=== PATIENT | male | born 2000 | race African-American/Black ===

== ENCOUNTER 2022-05-03 02:20 | Emergency (ER) | payer OTHER, SELFPAY ==
[2022-05-03 02:30] VITALS: BP 135/65; PULSE 80; RESP 16; TEMP 36.4; O2SAT 100
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
[2022-05-03] MEDS: Cyclobenzaprine 10 MG TAB PO (03:04)
[2022-05-03] MEDS: Lidocaine 5% Patch 1 PATCH TP (03:04)
[2022-05-03] MEDS: Ketorolac 15 MG/ML VIAL IM (03:04)
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
[2022-05-03 04:54] VITALS: BP 119/75; PULSE 66; RESP 18; O2SAT 99
== END 2022-05-03 04:53 | disposition home or self-care (01) ==
LOC: ER 05:04
PROVIDERS: Emergency Provider Emergency Medicine
DX: S20.221A Contusion of right back wall of thorax, initial encounter (principal); V43.52XA Car driver injured in collision with other type car in traffic accident, initial encounter; R07.89 Other chest pain; M54.89 Other dorsalgia
CPT/HCPCS: 71250; 96372; 99284; J1885

== ENCOUNTER 2023-10-28 16:53 | Emergency (ER) | payer MEDICAID, SELFPAY ==
[2023-10-28 17:07] VITALS: BP 116/68; PULSE 81; RESP 16; TEMP 36.9; O2SAT 100
--- NOTE | 2023-10-28 18:48 | ED.GENADUL_ITS ---
Discharge Plan Disposition Patient Disposition: Home Condition: Stable Discharge Details Clinical Impression: Viral syndrome Primary Care Provider: None,None ED Provider: Da Sierra Home Meds and New Rx's Prescriptions: Continued fluticasone propionate 50 mcg/actuation spray,suspension 1 spray intranasal BID Rx Instructions: administer into each nostril for 5-7 days then reduce to 1 spray daily until resolved. Discharge Instructions Instructions: Cough, runny nose, and the common cold, Ondansetron Additional Instructions: You were seen in the emergency department for your body aches with onset cough, is likely a viral syndrome, your labs are all reassuring for no evidence of severe systemic infection. You responded well to symptomatic treatments like Tylenol, NSAIDs, simple nausea medicines and IV fluids. I am sending you home with to go pack of dissolvable nausea tablets to place under your tongue about 20 to 30 minutes before mealtimes. Please try to stay well-hydrated. Please return to the emergency department for any severe worsening of your condition including shortness of breath, chest pain, profound lethargy, intractable nausea and vomiting. Discharge Data Discharge Date/Time-TO BE ENTERED AT DEPARTURE: 10/28/23 20:58 HPI General Date/Time Provider Initiated Documentation: 10/28/23 17:11 . HPI Narrative: 23 year-old male presents to ED today by POV/ambulating with a chief complaint of nausea/vomiting, headache, chills, body aches, cough- chronic smoker's cough with onset since 0300 this morning. Quality described as generalized malaise, no radiation to shortness of breath, chest pain, focal abdominal pain, black/bloody diarrhea, dizziness, high fever. Severity is described as moderate. Palliating factors include nothing specific. Provoking factors include nothing specific. Patient not anticoagulated. Related Data Home Medications ?Medication ?Instructions ?Recorded ?Confirmed fluticasone propionate 50 1 spray intranasal BID 10/08/23 mcg/actuation nasal spray,suspension Allergies Allergy/AdvReac Type Severity Reaction Status Date / Time No Known Allergies Allergy Unverified 12/17/12 08:33 General Stated Complaint: Nausea/Vomit/Diar HARPREET: 3 Review of Systems All systems reviewed & are unremarkable except as noted in HPI and below Exam Narrative Exam Narrative: GENERAL APPEARANCE: Well-nourished, non-toxic, awake and alert, atraumatic, no acute distress. SKIN: Warm, pink, dry, intact, without rashes/lesions/ulcerations. HEAD: Normocephalic, atraumatic, normal hair distribution for gender/age. EYES: Pupils PERRLA, EOMs intact without nystagmus, normal conjunctiva, no exudates on lids/lashes. ENT: Nares patent, no circumoral cyanosis, no facial swelling NECK: Supple, trachea midline, painless cervical ROM. LUNGS/CHEST: Lungs CTA bilaterally, non-labored respirations, normal A/P diameter, symmetrical expansion, no chest wall deformity HEART (CV/PV): Regular rate and rhythm without murmur, no peripheral edema, no JVD. ABDOMEN: Soft, non-distended, no guarding. MSK: Normal ROM, no swelling/deformity to bilateral UEs or LEs, moving all extremities without weakness, no cyanosis, spine midline without tenderness, normal curvature. NEURO: Mental Status AAOx4 - alert to person, place, time, events No facial droop, no forehead involvement. Motor: No focal weakness - strength 5/5 in bilateral UEs and LEs, proximal and distal, symmetric. Sensory: sensation intact to light touch globally. Gait normal: patient ambulated without ataxia into ED room. PSYCH: euthymic, cooperative, pleasant, appropriate speech Course Vital Signs Vital signs: Vital Signs Temperature 36.9 C 10/28/23 17:07 Pulse 81 10/28/23 17:07 Respiratory Rate 16 10/28/23 17:07 Blood Pressure 116/68 10/28/23 17:07 Pulse Oximetry 100 10/28/23 17:07 Temperature 36.9 C 10/28/23 17:07 Temperature Source Oral 10/28/23 17:07 Pulse 81 10/28/23 17:07 Respiratory Rate 16 10/28/23 17:07 Blood Pressure 116/68 10/28/23 17:07 Blood Pressure Position Sitting 10/28/23 17:07 Pulse Oximetry 100 10/28/23 17:07 Oxygen Delivery Method Room Air 10/28/23 17:07 Oxygen Flow Rate 0 10/28/23 17:07 Pain Level 7 10/28/23 17:07 Medical Decision Making This dictation utilizes [id number] dictation software and may contain unedited grammatical errors. 23 year-old male presents to ED today by POV/ambulating with a chief complaint of nausea/vomiting, headache, chills, body aches, cough- chronic smoker's cough with onset since 0300 this morning. Quality described as generalized malaise, no radiation to shortness of breath, chest pain, focal abdominal pain, black/bloody diarrhea, dizziness, high fever. Severity is described as moderate. Palliating factors include nothing specific. Provoking factors include nothing specific. Patients' medical history: asthma. Family and social history: noncontributory. Pertinent exam findings / vital signs include lungs CTA, no wheezing, benign cardiac exam, benign abdomen, nontoxic and afebrile. Differential / pathologies of concern include viral syndrome, generalized malaise, tickborne illness, gastroenteritis. Diagnostic studies of: -CBC, CMP, Lactate, Lipase, magnesium, Procalcitonin, Covid/Flu/RSV PCR, Tick Panel, UA. -CBC benign -Lactate and procalcitonin negative-do not suspect sepsis -COVID/flu/RSV PCR negative -UA without infection -Lipase negative -CMP completely benign -Magnesium within normal limits -Tick panel pending Interventions of: -Zofran to go, fluids Tylenol and migraine medications with complete relief of symptoms. ED Course/Assessment/Plan: Counseled the patient on likely viral syndrome, counseled on therapeutic dosing of Tylenol and ibuprofen at home stay well-hydrated, using to go Zofran before meals for the next day, likely he would improve over the next 7 days, strict return criteria for increasing respiratory distress, severe neck stiffness with fever, intractable nausea or vomiting. Findings not consistent with intractable nausea/vomiting, respiratory distress. Disposition of viral syndrome. Patient verbalized understanding of the plan and return to ED criteria and engaged in shared decision making. Medical Records Medical records reviewed: Yes I reviewed the patient's medical records. Lab Data Lab results reviewed: Yes I reviewed the patient's lab results. Labs: Laboratory Tests Range/Units 10/28/23 10/28/23 19:10 19:13 WBC (4.4-10.8) 10^3/uL 10.05 RBC (4.36-5.78) 10^6/uL 5.52 Hgb (13.5-17.5) g/dL 15.5 Hct (40.0-50.0) % 46.5 MCV (80-95) fL 84 MCH (27.0-33.0) pg 28.1 MCHC (32.0-36.0) % 33.3 RDW (11.8-14.1) % 12.0 Plt Count (130-400) 10^3/uL 416 H MPV (8.0-11.0) fL 9.1 Immature Gran % % 0.4 Neutrophils % % 75.1 Lymphocytes % % 13.6 Monocytes % % 10.1 Eosinophils % % 0.4 Basophils % % 0.4 Nucleated RBC % (0.0-0.3) % 0.0 Absolute Neutrophils (1.2-6.7) 10^3/uL 7.54 H Absolute Lymphocytes (1.2-3.4) 10^3/uL 1.37 Absolute Monocytes (0.1-0.8) 10^3/uL 1.02 H Absolute Eosinophils (0.0-0.7) 10^3/uL 0.04 Absolute Basophils (0.0-0.2) 10^3/uL 0.04 VBG Lactate (0.6-1.4) mmol/L 0.9 Sodium (136-145) mmol/L 142 Potassium (3.5-5.1) mmol/L 3.7 Chloride (98-107) mmol/L 103 Carbon Dioxide (21.0-32.0) mmol/L 30.0 Anion Gap (3-11) mmol/L 9.0 BUN (7-18) mg/dL 8 Creatinine (0.70-1.30) mg/dL 1.0 Est GFR (CKD-EPI 2020) (mL/min/1.73m2) 108.46 Glucose (74-106) mg/dL 103 Calcium (8.5-10.1) mg/dL 9.2 Magnesium (1.8-2.4) mg/dL 2.0 Total Bilirubin (0.2-1.0) mg/dL 0.91 AST (15-37) U/L 20 ALT (16-63) U/L 20 Alkaline Phosphatase (46-116) U/L 67 Total Protein (6.4-8.2) g/dL 8.8 H Albumin (3.4-5.0) g/dL 4.0 Lipase (16-77) U/L 39 Procalcitonin ng/mL 0.1 Urine Color (Yellow) Yellow Urine Clarity (Clear) Clear Urine pH (5-8) 8.5 H Ur Specific [place] (1.005-1.025) 1.020 Urine Protein (Neg-Trace) mg/dL Negative Urine Ketones (Negative) mg/dL 15 H Urine Blood (Negative) Negative Urine Nitrite (Negative) Negative Urine Bilirubin (Negative) Small H Urine Urobilinogen (Up to 0.2) mg/dL 4.0 H Ur Leukocyte Esterase (Negative) Negative Urine Glucose (Negative) mg/dL Negative COVID-19 Source Nasopharynx SARS-CoV-2 (PCR) (Negative) Negative Influenza Type A (PCR) (Negative) Negative Influenza Type B (PCR) (Negative) Negative RSV (PCR) (Negative) Negative Quality:SDOH Health Related Social Needs: No Data to Display PFSH All Active Problems (Updated 10/28/23 @ 20:27 by JULIO Camarillo) Viral syndrome (Acute) Medical History (Updated 10/28/23 @ 20:27 by JULIO Camarillo) Dysfunction of left eustachian tube Nausea and vomiting Disease of tongue, unspecified hyperbilirubinemia Family History Other Hypertensive disorder, systemic arterial MGM, MGF Diabetes mat and pat sides Personal history of malignant neoplasm MGM-breast pat side with breast cancer Hyperlipidemia MGM, MGF Mental disorder depresssion/suicide paternal side Mother Personal history of malignant neoplasm cervical cancer Mental disorder bipolar Asthma Father Attention deficit hyperactivity disorder Social History Smoking/Tobacco Use Status: Current every day Tobacco Type: e-cigarettes Smoking risk assessment performed?: Yes Alcohol Intake: current Alcohol Intake frequency: a few times a week Do you feel safe at home: Yes Do you feel safe in your relationship?: Yes
[2023-10-28] MEDS: Lactated Ringers 1,000 ML 1000 ML IV (19:14)
[2023-10-28 19:21] LABS: Lactate 0.9 mmol/L (0.6-1.4)
[2023-10-28] MEDS: ACETAMINOPHEN 1,000 MG/100 ML BTL 400 MG IVPB (19:22)
[2023-10-28] MEDS: Dexamethasone 4 MG/ML VIAL IVP (19:24)
[2023-10-28] MEDS: Ketorolac 15 MG/ML VIAL IVP (19:26)
[2023-10-28 19:28] LABS: Abs Immature Grans 0.04 10^3/uL (0.0-0.06); Absolute Basophil Count 0.04 10^3/uL (0.0-0.2); Absolute Eosinophil Count 0.04 10^3/uL (0.0-0.7); Absolute Lymphocyte Count 1.37 10^3/uL (1.2-3.4); Absolute Monocyte Count 1.02 10^3/uL (0.1-0.8); Absolute Neutrophil Count 7.54 10^3/uL (1.2-6.7); Basophils % 0.4 %; Eosinophils % 0.4 %; HCT 46.5 % (40.0-50.0); HGB 15.5 g/dL (13.5-17.5); Immature Grans % 0.4 %; Lymphocytes % 13.6 %; MCH 28.1 pg (27.0-33.0); MCHC 33.3 % (32.0-36.0); MCV 84 fL (80-95); MPV 9.1 fL (8.0-11.0); Monocytes % 10.1 %; Neutrophils % 75.1 %; Platelet Count 416 10^3/uL (130-400); RBC 5.52 10^6/uL (4.36-5.78); RDW-SD 36.5 fL; WBC 10.05 10^3/uL (4.4-10.8)
[2023-10-28] MEDS: Metoclopramide 10 MG/2 ML VIAL IVP (19:29)
[2023-10-28] MEDS: diphenhydrAMINE 50 MG/ML VIAL 25 MG IVP (19:29)
[2023-10-28 19:38] LABS: Bilirubin Small (Negative); Blood Negative (Negative); Clarity Clear (Clear); Glucose Negative (Negative); Ketones 15 mg/dL (Negative); Leukocyte Esterase Negative (Negative); Nitrite Negative (Negative); pH 8.5 (5-8)
[2023-10-28 19:42] LABS: ALT 20 U/L (16-63); AST 20 U/L (15-37); Alkaline Phosphatase 67 U/L (46-116); BUN 8 mg/dL (7-18); Bilirubin, Total 0.91 mg/dL (0.2-1.0); Calcium 9.2 mg/dL (8.5-10.1); Chloride 103 mmol/L (98-107); Estimated GFR 108.46 (mL/min/1.73m2); Glucose 103 mg/dL (74-106); Lipase 39 U/L (16-77); Potassium 3.7 mmol/L (3.5-5.1); Sodium 142 mmol/L (136-145); Total Protein 8.8 g/dL (6.4-8.2)
[2023-10-28 20:01] LABS: Procalcitonin 0.1 ng/mL
[2023-10-28 20:10] LABS: COVID-19 PCR Negative (Negative); Influenza A PCR Negative (Negative); Influenza B PCR Negative (Negative); RSV PCR Negative (Negative); Source Nasopharynx
[2023-10-28 20:40] VITALS: BP 111/57; PULSE 69; TEMP 36.1; O2SAT 97
[2023-10-30 10:07] LABS: Lyme Ab w Rflx to Lyme Confirm Negative (Negative)
[2023-11-01 01:32] LABS: Anaplasma phagocytophilum Negative (Negative); B. miyamotoi PCR Negative (Negative); Babesia divergens/MO-1 Negative (Negative); Babesia duncani Negative (Negative); Babesia microti Negative (Negative); Ehrlichia chaffeensis Negative (Negative); Ehrlichia ewingii/canis Negative (Negative); Ehrlichia muris eauclairensis Negative (Negative)
== END 2023-10-28 20:58 | disposition home or self-care (01) ==
PROVIDERS: Emergency Provider Physician Assistant
DX: B34.9 Viral infection, unspecified (principal); F17.290 Nicotine dependence, other tobacco product, uncomplicated
CPT/HCPCS: 80053; 83690; 84145; 87637; 87798; 81003; 83605; 83735; 85025; 86618; J0131; J1100; J1200; J1885; J2765

== ENCOUNTER 2023-11-07 10:23 | Emergency (ER) | payer MEDICAID, SELFPAY ==
[2023-11-07 10:26] VITALS: BP 115/61; PULSE 94; RESP 18; TEMP 37; O2SAT 100
--- NOTE | 2023-11-07 11:07 | W.ED.GENAD ---
Discharge Plan Disposition Patient Disposition: Home Condition: Good Discharge Details Clinical Impression: Conjunctivitis, Acute eye pain Primary Care Provider: None,None ED Provider: Meg Haley Home Meds and New Rx's Prescriptions: Continued fluticasone propionate 50 mcg/actuation spray,suspension 1 spray intranasal BID Rx Instructions: administer into each nostril for 5-7 days then reduce to 1 spray daily until resolved. Discharge Instructions Additional Instructions: As we discussed, I am concerned that you have some irritation and uptake on your exam today. This may be associated with the eyedrops or with exposure at work. I am not putting any ointment in your eyes should be family eye care will see you right now. Please go directly from here to their office and they will be able to evaluate your eye and come up with a plan. If you develop any new or worsening symptoms, please seek care urgently once again. Otherwise, please follow recommendations of [facility]. Stand Alone Forms: Work Release Referrals: [facility] [Outside] Homa Funez RN [Emergency Nurse] - Discharge Data Discharge Date/Time-TO BE ENTERED AT DEPARTURE: 11/07/23 12:55 HPI General Date/Time Provider Initiated Documentation: 11/07/23 10:24. Limitations to Documentation: no limitations. Information obtained by: patient, family and RN notes reviewed. History of Present Illness 23 year old M presents to the emergency department with the chief complaint of bilateral eye pain, photophobia, injection, described as moderate, Quality is described as burning (no pain with eyes closed, only with blinking and light exposure), and is localized to the eyes. Patient reports no radiation. Patient started experiencing this day(s) and it has been constant. No relieving factors improve symptom(s), No exacerbating factors reported . Patient notes no other symptoms.. Patient did receive the following treatments prior to arrival, other (Visine eye drops) Related Data Home Medications ?Medication ?Instructions ?Recorded ?Confirmed fluticasone propionate 50 1 spray intranasal BID 10/08/23 11/07/23 mcg/actuation nasal spray,suspension Allergies Allergy/AdvReac Type Severity Reaction Status Date / Time No Known Allergies Allergy Unverified 11/07/23 10:29 General Stated Complaint: EyeProblem HARPREET: 4 Review of Systems Constitutional Constitutional: Reports as per HPI, Denies chills, Denies fever(s) and Denies headache(s) Eyes Eyes: Reports as per HPI ENT Ears, Nose, Mouth, and Throat: Denies headache(s) Respiratory Respiratory: Denies cough Integumentary/Breasts Skin/Breast: Reports as per HPI, Denies rash, Denies skin pain and Denies skin swelling Neurologic Neurologic: Denies headache(s) Exam Const General: cooperative, healthy appearing, no acute distress, well developed and well groomed Nutritional Appearance: average body habitus and well nourished Orientation: alert, awake and oriented x3 HENMT Head: normal to inspection, normocephalic and atraumatic Ears: external ears normal General nose exam: external nose normal and nares normal Face and sinus: normal facial exam and face symmetric Mouth: oral mucosae normal, lip normal and moist mucous membranes Eyes Alignment and Position: alignment normal and position normal Periorbital: periorbital findings normal Eyelids: eyelids normal Conjunctivae: conjunctival abnormality bilaterally conjunctival injection Sclera: scleral abnormality bilaterally Cornea: corneas abnormal bilaterally fluorescein used and diffuse punctate uptake (consistent with keratitis, no dendritic lesions) and fluorescein used Pupils: PERRL EOM: EOM intact bilaterally Resp Effort & Inspection: normal respiratory effort, able to speak in complete sentences and no respiratory distress Skin General skin exam: no rashes or lesions noted Neuro General: patient alert and patient awake Cognition: normal cognition Speech: speech normal Gait: normal gait Course Vital Signs Vital signs: Vital Signs Temperature 37.0 C 11/07/23 10:26 Pulse 94 H 11/07/23 10:26 Respiratory Rate 18 11/07/23 10:26 Blood Pressure 115/61 11/07/23 10:26 Pulse Oximetry 100 11/07/23 10:26 Temperature 37.0 C 11/07/23 10:26 Temperature Source Temporal Artery Scan 11/07/23 10:26 Pulse 94 H 11/07/23 10:26 Respiratory Rate 18 11/07/23 10:26 Respiratory Effort Normal, Non-Labored 11/07/23 10:28 Blood Pressure 115/61 11/07/23 10:26 Blood Pressure Position Sitting 11/07/23 10:26 Pulse Oximetry 100 11/07/23 10:26 Oxygen Delivery Method Room Air 11/07/23 10:26 Oxygen Flow Rate 0 11/07/23 10:26 Medical Decision Making Patient is a pleasant 23-year-old male, otherwise healthy, accompanied by his significant other, presenting with chief complaint of bilateral eye pain. He reports he was seen in urgent care about 1 week ago and was diagnosed with a viral conjunctivitis. He reports that he was ill with a cold the week prior, though symptoms of all resolved. However, the eye issues has continued to progress. He reports that now he has significant photophobia and feels that his vision is blurry. Is wearing sunglasses and has difficulty opening his eyes secondary to what he perceives as the photophobia. Patient does wear corrective lenses but does not wear contacts. Receives care at [facility]. He has not been seen by them as of yet. He denies any significant headaches or eye pain when the eyes are closed. No nausea or vomiting. Denies any fevers or chills. On exam, patient appears nontoxic. He is preferring to hold his eyes in the closed position. With assistance, able to open the eyes and appreciated injected sclera bilateral eyes. Pupils appear to have normal response. He does have significant discomfort with this. I not appreciate any significant abnormality at this time. He denies any trauma or foreign body sensation. However, patient does work at [employer] and I am concerned about potential exposures and question if he may have some corneal abrasions that may be contributing to the worsening photophobia and eye issues. Will apply tetracaine and continue with fluorescein exam. I do not see any surrounding erythema. No discharge. No pain with extraocular movements when the eyes are closed and photophobia is not contributing to his discomfort. For this reason, I do not see indication of orbital cellulitis. Extraocular movements are intact. No pain with extraocular movements when eyes are closed. This is more difficult when eyes are open given the photophobia. Patient did improve after application of tetracaine. Concerned for small punctate lesions on slit lamp exam. Concerned that this indicates chemical irritation, keratitis. Could be viral keratitis but no dendritic lesions to indicate herpetic lesions. Called [facility] where patient typically recieves care. They are able to see patient immediatly. Will therefore hold off on any further intraocular medications. Discussed with patient who is in agreement. Return precautions discussed. Quality:SDOH Health Related Social Needs: No Data to Display [facility] All Active Problems (Updated 11/07/23 @ 12:32 by JULIO Marshall) Acute eye pain (Acute) Conjunctivitis (Acute) Viral syndrome (Acute) Medical History (Updated 11/07/23 @ 12:32 by JULIO Marshall) Dysfunction of left eustachian tube Nausea and vomiting Disease of tongue, unspecified hyperbilirubinemia Family History Other Hypertensive disorder, systemic arterial MGM, MGF Diabetes mat and pat sides Personal history of malignant neoplasm MGM-breast pat side with breast cancer Hyperlipidemia MGM, MGF Mental disorder depresssion/suicide paternal side Mother Personal history of malignant neoplasm cervical cancer Mental disorder bipolar Asthma Father Attention deficit hyperactivity disorder Social History Smoking/Tobacco Use Status: Current every day Tobacco Type: e-cigarettes Smoking risk assessment performed?: Yes Alcohol Intake: current Alcohol Intake frequency: a few times a week Drug use: Daily Substance use type: marijuana Do you feel safe at home: Yes Do you feel safe in your relationship?: Yes
[2023-11-07] MEDS: Fluorescein STRIPS 100/BOX 1 MG OP (11:13)
[2023-11-07] MEDS: Tetracaine 0.5% 4 ML BTL OP (11:13)
[2023-11-07 11:14] VITALS: BP 116/74; PULSE 88; RESP 16; O2SAT 100
[2023-11-07 12:52] VITALS: BP 120/74; PULSE 88; RESP 18; O2SAT 99
[2023-11-07] MEDS: Erythromycin Ophth Oint 3.5 GM TUBE OU (12:53)
== END 2023-11-07 12:55 | disposition home or self-care (01) ==
PROVIDERS: Emergency Provider Physician Assistant
DX: H10.9 Unspecified conjunctivitis (principal); H57.13 Ocular pain, bilateral; F17.290 Nicotine dependence, other tobacco product, uncomplicated
CPT/HCPCS: 99283

== ENCOUNTER 2024-02-06 17:17 | Outpatient (REF) | payer OTHER, MEDICAID, SELFPAY ==
--- NOTE | 2024-02-06 10:15 | TONG_PTH ---
PATIENT: Glynn Keith LOC: [place] U#:[id number] AGE/SX: 23/M ROOM: RE02/06/[address]: Eduardo Barajas MD : [id number] BED: DIS: 02/06/2024 SPEC #: [id number] RECD: 02/06/24 17:31 STATUS: SHIREEN REQ #: [id number] LUCÍA: 02/06/24 10:[address]: Eduardo Barajas DEPT: Surgical Specimen RECD BY: Dhara Guzman ENTERED: 02/06/24 17:32 SP TYPE: ISRAEL KAUFMAN DR: None Tissues: 1 - TONGUE BIOPSY Procedures: GROSS AND MICRO LEVEL 4 Comments: [id number]
== END 2024-02-06 17:18 | disposition home or self-care (01) ==
LOC: LBN 17:17
PROVIDERS: Visit Provider Otolaryngology
DX: K14.8 Other diseases of tongue (principal)
CPT/HCPCS: 88305